=== PATIENT | female | born 2000 ===

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

== ENCOUNTER 2019-01-27 02:55 | Emergency (ER) | payer OTHER ==
[2019-01-27 04:40] LABS: Urine Appearance Turbid; Urine Bacteria Absent (Absent); Urine Bilirubin Negative (Negative); Urine Blood 3+ (Negative); Urine Glucose Negative (Negative); Urine Ketones Trace (Negative); Urine Nitrite Negative (Negative); Urine Protein 2+(100 mg/dL) (Negative); Urine Red Blood Cell 3+(>10/hpf) (Absent); Urine Urobilinogen Negative (Negative); Urine White Blood Cell 1+(6-10/hpf) (Absent)
[2019-01-27 04:57] LABS: Urine Color Red
[2019-01-27] MEDS ORDERED: Sulfamethox/Trimethoprim DS 800/160* TAB PO ONE (04:57)
--- NOTE | 2019-01-27 04:59 | ED ---
GI/ HPI - HPI Summary HPI Summary: Patient is a 18 y/o F presenting to [facility] with complaints of hematuria, suprapubic pain, and increased frequency of urination. She states that 01/25/19 , she had suprapubic pain. Afterwards, patient notes that she had onset of increased frequency of urination. At around 0100/0200 01/27/19, patient had an episode of hematuria and came to ED for evaluation. Patient reports some lower back pain as well but denies fever. Some N/V is also reported, but she relates this to some bad food that she had eaten 01/26/19. She endorses Hx of UTI and states that she has them "pretty frequently". She notes that her present Sx are similar to prior episodes. LNMP was January 07. She is on xulane. On triage, pain is rated 7/10, nothing is noted to aggravate/alleviate Sx. Home medications and allergies are reviewed. - History of Current Complaint Chief Complaint: EDUrogenitalProblems Time Seen by Provider: 01/27/19 04:12 Stated Complaint: BLOOD IN URINE PER PT Hx Obtained From: Patient Onset/Duration: Started Days Ago - suprapubic pain Timing: Lasting Days - suprapubic pain Severity: Severe - 7/10 Current Severity: Severe - 7/10 Pain Intensity: 7 Location of Pain: Suprapubic, Other - lower back pain Associated Signs and Symptoms: Positive: Back Pain - lower, Nausea, Vomiting, Hematuria, Abdominal Pain - suprapubic, UTI Symptoms - increased frequency of urination. Negative: Fever Aggravating Factor(s): Nothing Alleviating Factor(s): Nothing - Allergy/Home Medications Allergies/Adverse Reactions: Allergies Allergy/AdvReac Type Severity Reaction Status Date / Time Penicillins Allergy Unknown Verified 01/27/19 02:58 Reaction Details PMH/Surg Hx/FS Hx/Imm Hx Endocrine/Hematology History: Denies: Hx Diabetes Cardiovascular History: Denies: Hx Hypercholesterolemia, Hx Hypertension Sensory History: Denies: Hx Deafness - Cancer History Cancer Type, Location and Year: None reported - Surgical History Surgery Procedure, Year, and Place: None reported - Immunization History Immunizations Up to Date: Yes Infectious Disease History: No Infectious Disease History: Denies: Hx Clostridium Difficile, Hx Hepatitis, Hx Human Immunodeficiency Virus (HIV), Hx of Known/Suspected MRSA, Hx Shingles, Hx Tuberculosis, Hx Known/ Suspected VRE, Hx Known/Suspected VRSA, History Other Infectious Disease, Traveled Outside the [place] in Last 30 Days - Family History Known Family History: Negative: Cardiac Disease, Hypertension, Diabetes - Social History Alcohol Use: None Substance Use Type: Reports: None Smoking Status (MU): Never Smoked Tobacco Review of Systems Negative: Fever Positive: Abdominal Pain, Vomiting, Nausea Positive: frequency - increased frequency of urination , hematuria Musculoskeletal: Other - positive - back pain All Other Systems Reviewed And Are Negative: Yes Physical Exam - Summary Physical Exam Summary: General: Well-developed, Well-nourished female. No acute distress. HEENT: Normocephalic, Atraumatic. Eyes: Conjuctiva normal, PERRL. Ears: TMs within normal limits. Nares: (-) discharge, (-) erythema. Oropharynx: Clear, mucous membranes moist, (-) exudates. Neck: Soft, FROM, (-) lymphadenopathy, (-) thyromegaly, (-) JVD. Cardiovascular: Normal sinus rhythm, (-) murmur. Lungs: Clear to auscultation bilaterally (-) wheezes, (-) rales, (-) rhonchi. Abdomen: Mild suprapubic tenderness is noted. Soft, non-distended, (-) organomegaly, normal bowel sounds. Back: (-) CVA tenderness Extremities: No edema. Skin: Warm, dry, (-) rash. Neuro: Alert and oriented x3, no focal deficits. Psychiatric: Mood normal, affect normal. Triage Information Reviewed: Yes Vital Signs On Initial Exam: Initial Vitals Temp Pulse Resp BP Pulse Ox 98.5 F 88 15 135/79 99 01/27/19 02:57 01/27/19 02:57 01/27/19 02:57 01/27/19 02:57 01/27/19 02:57 Vital Signs Reviewed: Yes Procedures - Sedation Patient Received Moderate/Deep Sedation with Procedure: No Diagnostics - Vital Signs Vital Signs Temp Pulse Resp BP Pulse Ox 01/27/19 02:57 98.5 F 88 15 135/79 99 - Laboratory Lab Results: Lab Results 01/27/19 Range/Units 03:55 Urine Color Pending Urine Appearance Turbid Urine pH 6.0 (5-9) Ur Specific [place] 1.030 (1.010-1.030) Urine Protein 2+(100 mg/dl) A (Negative) Urine Ketones Trace A (Negative) Urine Blood 3+ A (Negative) Urine Nitrate Negative (Negative) Urine Bilirubin Negative (Negative) Urine Urobilinogen Negative (Negative) Ur Leukocyte Esterase 1+ A (Negative) Urine WBC (Auto) 1+(6-10/hpf) A (Absent) Urine RBC (Auto) 3+(>10/hpf) A (Absent) Urine Bacteria Absent (Absent) Urine Glucose Negative (Negative) Lab Statement: Any lab studies that have been ordered have been reviewed, and results considered in the medical decision making process. GIGU Course/Dx - Course Course Of Treatment: 18-year-old female with urinary frequency, dysuria and hematuria. Patient started on Bactrim. Advised plenty of fluids. Follow up with PCP. Follow-up sooner for any worsening symptoms. - Diagnoses Provider Diagnoses: UTI (urinary tract infection) Discharge ED - Sign-Out/Discharge Documenting (check all that apply): Patient Departure - discharge - Discharge Plan Condition: Stable Disposition: HOME Prescriptions: Fluconazole 150 MG TAB* [Diflucan 150 MG TAB*] 150 mg PO ED ONCE #1 tablet Sulfamethox/Trimethoprim DS* [Bactrim DS 800/160 TAB*] 1 tab PO BID 7 Days #14 tab Patient Education Materials: Urinary Tract Infection in Women (ED) Referrals: [facility] [Outside] - 3 Days Additional Instructions: PLEASE RETURN TO ED FOR ANY NEW OR CONCERNING SYMPTOMS. FOLLOW UP WITH YOUR PRIMARY CARE PHYSICIAN WITHIN 1-3 DAYS. - Billing Disposition and Condition Condition: STABLE Disposition: Home - Attestation Statements Document Initiated by Emilie: Yes Documenting Scribe: ANABEL PLASCENCIA Provider For Whom Emilie is Documenting (Include Credential): FABY MÉNDEZ MD Scribe Attestation: I, ANABEL PLASCENCIA, scribed for FABY MÉNDEZ MD on 01/27/19 at 0557. Scribe Documentation Reviewed: Yes Provider Attestation: The documentation as recorded by the ANABEL cardenas accurately reflects the service I personally performed and the decisions made by me, FABY MÉNDEZ MD Status of Scribe Document: Viewed
[2019-01-27 05:49] VITALS: BP 111/62
--- NOTE | 2019-01-29 07:01 | ED ---
Imaging and Labs Follow Up Follow Up Type: Labs/Cultures Labs/Culture Result: urine culture grew staphylococcus saprophyticus 100,000 Patient Communication/Plan: pt placed on bactrim - likely sensitive to organism routine sensitivity is not performed Provider Diagnoses: UTI (urinary tract infection)
== END 2019-01-27 05:48 | disposition home or self-care (01) ==
LOC: ED 02:55
DX: N39.0 Urinary tract infection, site not specified (principal); B95.8 Unspecified staphylococcus as the cause of diseases classified elsewhere; R31.9 Hematuria, unspecified; R10.9 Unspecified abdominal pain; M54.9 Dorsalgia, unspecified; R11.2 Nausea with vomiting, unspecified
CPT/HCPCS: 81003; 81015; 87077; 87086; 87186; 99282; A9270-GY